=== PATIENT | female | born 1970 | race Caucasian/White ===

== ENCOUNTER 2018-07-25 09:33 | Day surgery (SDC) | payer OTHER ==
[2018-07-25] MEDS ORDERED: DOXYCYCLINE HY100 MG PO (20:01)
[2018-07-25] MEDS ORDERED: CODE1TAB37 PO (20:01)
== END 2018-07-25 22:15 | disposition home or self-care (01) ==
LOC: CIR.AMB 09:33
DX: D25.0 Submucous leiomyoma of uterus (principal); N84.0 Polyp of corpus uteri; N80.0 Endometriosis of uterus; N72 Inflammatory disease of cervix uteri